=== PATIENT | male | born 1985 | race African-American/Black ===

== ENCOUNTER 2022-10-09 10:06 | Emergency (ER) | payer MEDICAID ==
[~2022-10-09] VITALS: Ht 170.2 cm; Wt 73.0 kg
[2022-10-09 10:31] VITALS: BP 129/83
[2022-10-09] MEDS ORDERED: SULF1TAB48 MT (12:58)
[2022-10-09] MEDS ORDERED: CEPH500T MT (12:58)
== END 2022-10-09 13:44 | disposition home or self-care (01) ==
LOC: ER 10:06
DX: L03.116 Cellulitis of left lower limb (principal); Z98.890 Other specified postprocedural states
CPT/HCPCS: 99283

== ENCOUNTER 2023-07-20 08:34 | Emergency (ER) | payer MEDICAID ==
[~2023-07-20] VITALS: Ht 175.3 cm; Wt 60.0 kg
[~2023-07-20 08:34] MED LIST: CEPH500T MT; SULF1TAB48 MT
[2023-07-20 08:54] VITALS: BP 117/84; PULSE 100; RESP 22; TEMP 97.8; O2SAT 100
== END 2023-07-20 12:22 | disposition left against medical advice (07) ==
LOC: ER 08:34
DX: Z53.21 Procedure and treatment not carried out due to patient leaving prior to being seen by health care provider (principal)
CPT/HCPCS: 99281

== ENCOUNTER 2023-12-11 00:37 | Emergency (ER) | payer MEDICAID ==
[~2023-12-11] VITALS: Ht 170.2 cm; Wt 74.0 kg
[2023-12-11 01:40] VITALS: O2SAT 99
[2023-12-11] MEDS: PENICILLIN G BENZATHINE 2,400,000 UNITS/4ML SYR IM ONE (04:28)
[2023-12-11 04:52] VITALS: BP 135/90; PULSE 90; RESP 18; TEMP 98.7
== END 2023-12-11 04:56 | disposition home or self-care (01) ==
LOC: ER 00:47
DX: A51.49 Other secondary syphilitic conditions (principal)
CPT/HCPCS: 99283; 96372; J0561

== ENCOUNTER 2023-12-24 15:21 | Emergency (ER) | payer MEDICAID ==
[~2023-12-24] VITALS: Ht 170.2 cm; Wt 72.0 kg
[2023-12-24 15:24] VITALS: BP 130/86; PULSE 101; RESP 12; TEMP 98; O2SAT 98
[2023-12-24] MEDS ORDERED: PENICILLIN G BENZATHINE 2,400,000 UNITS/4ML SYR IM ONE (16:15)
== END 2023-12-24 17:26 | disposition left against medical advice (07) ==
LOC: ER 15:21
DX: R21 Rash and other nonspecific skin eruption (principal)
CPT/HCPCS: 99281; J0561

== ENCOUNTER 2024-01-07 01:06 | Emergency (ER) | payer MEDICAID ==
[2024-01-07] MEDS ORDERED: CEFTRIAXONE SODIUM 500MG VIAL IM ONE (06:00)
[2024-01-07] MEDS ORDERED: DOXYCYCLINE HYCLATE 100MG CAPSULE PO ONE (06:00)
== END 2024-01-07 06:02 | disposition left against medical advice (07) ==
LOC: ER 01:06
DX: Z20.2 Contact with and (suspected) exposure to infections with a predominantly sexual mode of transmission (principal); Z53.21 Procedure and treatment not carried out due to patient leaving prior to being seen by health care provider

== ENCOUNTER 2024-01-10 20:54 | Emergency (ER) | payer MEDICAID ==
[~2024-01-10] VITALS: Ht 170.2 cm; Wt 73.0 kg
[2024-01-10 21:48] VITALS: BP 115/68; PULSE 84; RESP 17; TEMP 98.5; O2SAT 99
== END 2024-01-11 | disposition left against medical advice (07) ==
LOC: ER 20:59
DX: R51.9 Headache, unspecified (principal); Z53.21 Procedure and treatment not carried out due to patient leaving prior to being seen by health care provider
CPT/HCPCS: 99281

== ENCOUNTER 2025-09-14 20:14 | Emergency (ER) | payer MEDICAID ==
[~2025-09-14] VITALS: Ht 165.1 cm; Wt 82.0 kg
[2025-09-14 20:22] VITALS: O2SAT 97
[2025-09-14] MEDS: MORPHINE SULFATE 4 MG/ML INJ (FOR IV/IM USE) IM ONE (20:46)
[2025-09-14] MEDS: KETOROLAC 30MG/ML VIAL IM ONE (21:23)
[2025-09-14] MEDS: TETANUS, DIPHTHERIA, PERTUSSIS VAC/PF 0.5ML (>10YR OLD) IM ONE (21:24)
[2025-09-14] MEDS: BACITRACIN ZINC OINT UDPKT TOP ONE (21:28)
[2025-09-14] MEDS: LIDOCAINE HCL 1% 20ML VIAL INL ONE (21:28)
[2025-09-14] MEDS ORDERED: NAPR-1176 MT (23:14)
[2025-09-14] MEDS ORDERED: AMOX1TAB16 MT (23:14)
[2025-09-15 00:02] VITALS: BP 122/75; PULSE 84; RESP 20; TEMP 36.7; O2SAT 100
== END 2025-09-15 00:07 | disposition home or self-care (01) ==
LOC: ER 20:14
DX: S60.351A Superficial foreign body of right thumb, initial encounter (principal); Z79.1 Long term (current) use of non-steroidal anti-inflammatories (NSAID); W45.3XXA Fishing hook entering through skin, initial encounter; Y93.89 Activity, other specified; Y92.89 Other specified places as the place of occurrence of the external cause; Y99.8 Other external cause status
CPT/HCPCS: 73140; 90715; 90471; 96372; 99284; J1885; J2003; J2270; Z7610 ×2